=== PATIENT | male | born 1940 | race Caucasian/White ===

== ENCOUNTER 2023-10-30 09:17 | Day surgery (SDC) | payer OTHER ==
[2023-10-29 11:29] VITALS: BP 147/61; PULSE 59; RESP 16
[2023-10-29 11:33] LABS: BASOPHILS # (AUTO) 0.08 K/uL (0.00-0.20); BASOPHILS % (AUTO) 1.1 % (0.0-5.0); EOSINOPHILS # (AUTO) 0.28 K/uL (0.00-0.70); EOSINOPHILS % (AUTO) 3.8 % (0.0-8.0); HEMATOCRIT 43.6 % (42-54); IMMATURE GRANULOCYTE ABSOLUTE 0.02 K/uL (0-1); LYMPHOCYTES # (AUTO) 1.3 K/uL (1.0-4.8); LYMPHOCYTES % (AUTO) 18.1 % (21.0-51.0); MEAN CORPUSCULAR HEMOGLOBIN 32.5 pg (27.0-33.0); MEAN CORPUSCULAR HGB CONC 33.9 g/dL (32.0-36.0); MEAN CORPUSCULAR VOLUME 95.8 fL (79-99); MONOCYTES # (AUTO) 0.8 K/uL (0.1-1.0); MONOCYTES % (AUTO) 11.2 % (3.0-13.0); NEUTROPHILS # (AUTO) 4.9 K/uL (1.8-7.7); NEUTROPHILS % (AUTO) 65.5 % (40.0-77.0); PLATELET COUNT (AUTO) 144 K/uL (130-400); RED BLOOD CELL COUNT(AUTO) 4.55 MIL/uL (4.50-6.20); RED CELL DISTRIBUTION WIDTH 13.1 % (11.0-15.5); WHITE BLOOD COUNT (AUTO) 7.4 K/uL (4.8-10.8)
[2023-10-29 11:38] LABS: POTASSIUM 4.2 mmol/L (3.5-5.1)
[2023-10-29 12:00] LABS: INR 1.15 (0.85-1.15); PROTHROMBIN TIME 12.3 SEC (9.6-11.6)
[2023-10-29 12:02] LABS: PARTIAL THROMBOPLASTIN TIME 29.4 SEC (26.3-35.5)
[~2023-10-30] VITALS: Ht 177.8 cm; Wt 95.9 kg
[2023-10-30] VITALS (9 sets, daily range): BP systolic 136–161; BP diastolic 76–91; PULSE 61–90; RESP 14–18
[~2023-10-30 09:17] MED LIST: APIX5TAB PO; TAMS-1 PO
[2023-10-30] MEDS ORDERED: LIDOCAINE HCL 1% MDV 50ML VIAL ONE (10:07)
[2023-10-30] MEDS ORDERED: BUPIvacaine/PF 0.25% 30ML VIAL IJ ONE (10:07)
[2023-10-30] MEDS ORDERED: IOHEXOL-350 50ML VIAL IV ONE (10:08)
[2023-10-30] MEDS ORDERED: ceFAZolin SODIUM 1 GM VIAL ONE (10:21)
[2023-10-30] MEDS ORDERED: ATOR20TA65 PO (10:23)
[2023-10-30] MEDS: 0.9%NACL 1000ML 1,000 ML IV ONE (10:44)
[2023-10-30] MEDS ORDERED: FENTANYL CITRATE PF 50 MCG/1 ML 2ML VIAL ONE (10:48)
[2023-10-30] MEDS ORDERED: MIDAZOLAM HCL 1 MG/ML 2ML VIAL ONE ×3 (10:49→11:50)
[2023-10-30] MEDS: ceFAZolin SODIUM 1 GM VIAL IVPB ONE (16:04)
== END 2023-10-30 16:50 | disposition home or self-care (01) ==
LOC: DAH 09:17
PROVIDERS: ATTEND Internal Medicine Interventional Cardiology
DX: I49.5 Sick sinus syndrome (principal); I48.11 Longstanding persistent atrial fibrillation; I45.89 Other specified conduction disorders; R42 Dizziness and giddiness; R00.1 Bradycardia, unspecified; I11.0 Hypertensive heart disease with heart failure; I50.42 Chronic combined systolic (congestive) and diastolic (congestive) heart failure; G60.8 Other hereditary and idiopathic neuropathies; I25.10 Atherosclerotic heart disease of native coronary artery without angina pectoris; E78.2 Mixed hyperlipidemia; E66.3 Overweight; Z79.01 Long term (current) use of anticoagulants; Z79.899 Other long term (current) drug therapy; Z68.29 Body mass index [BMI] 29.0-29.9, adult; Z95.1 Presence of aortocoronary bypass graft
CPT/HCPCS: 80048; 85025; 85610; 85730; 36415; 71045 ×2; 93005; 33208; C1785; C1898 ×2; C1894; J3010; J0690 ×2; J7030; J0665; J2250 ×3; J3490; Q9967; A4215; A4222; A4221; A4663; A4216; A4606; A4223 ×3; 99156; 99157